=== PATIENT | female | born 1940 | race Caucasian/White ===

== ENCOUNTER 2020-11-20 21:32 | Emergency (ER) | payer MEDICARE, OTHER ==
[~2020-11-20] VITALS: Ht 162.6 cm; Wt 62.1 kg
[2020-11-20] MEDS ORDERED: NORVASC10 MG PO (21:55)
[2020-11-20] MEDS ORDERED: METFORMIN HCL500 M3 PO (21:55)
[2020-11-20] MEDS ORDERED: COZAAR 25 MG TA25 M1 PO (21:56)
[2020-11-20] MEDS ORDERED: LEVO-T25 MCG PO (21:56)
[2020-11-20] MEDS ORDERED: LIPITOR10 MG PO (21:56)
[2020-11-20 23:00] VITALS: BP 153/59
== END 2020-11-20 23:00 | disposition home or self-care (01) ==
LOC: M.ERS 21:32
DX: S93.401A Sprain of unspecified ligament of right ankle, initial encounter (principal); Z79.84 Long term (current) use of oral hypoglycemic drugs; Z79.899 Other long term (current) drug therapy; W18.30XA Fall on same level, unspecified, initial encounter; Y93.89 Activity, other specified; Y92.89 Other specified places as the place of occurrence of the external cause; Y99.8 Other external cause status